=== PATIENT | female | born 1970 | race Caucasian/White ===

== ENCOUNTER → 2019-10-30 15:10 | Outpatient (CLI) | payer OTHER, SELFPAY ==
--- NOTE | ~2019-10-30 | US_ITS ---
EXAMINATION: US pelvic complete w TV EXAM DATE: 10/30/2019 15:48 INDICATION: Fibroids, menorrhagia. TECHNIQUE: Pelvic transabdominal and transvaginal sonogram was performed. There are multiple graysca le and Doppler images available for interpretation. Comparison is made to prior examination from 02/01. FINDINGS: Uterus measures 10.9 x 7.4 x 7.3 cm, and is morphologically normal. Endometrial stripe me asures 9 mm, within normal limits. There are several fibroids, largest measuring 3.7 cm, next largest 2.3 cm. There is no free pelvic fluid. Right adnexa: The ovary measures 3.8 x 3.2 x 3.7 cm and is morphologically normal. Ovarian vascular f low confirmed. Left adnexa: The ovary is not identified. There is no adnexal mass. No significant interval change compared to 2018 exam. IMPRESSION: 1. Fibroid uterus. Reviewed, dictated and finalized at location A. IMPRESSION: 1. Fibroid uterus.
== END ==
PROVIDERS: PCP Family Medicine; Visit Provider Obstetrics & Gynecology
DX: N92.0 Excessive and frequent menstruation with regular cycle (principal); Z11.51 Encounter for screening for human papillomavirus (HPV); Z12.4 Encounter for screening for malignant neoplasm of cervix; D25.9 Leiomyoma of uterus, unspecified
CPT/HCPCS: 76830; 76856

== ENCOUNTER 2021-08-13 12:58 | Outpatient (RCR) | payer OTHER, SELFPAY ==
[2021-08-13 14:08] VITALS: BP 136/80; PULSE 93; RESP 20; TEMP 36.7; O2SAT 98
[2021-08-13] MEDS: FAMOTIDINE 20 MG TABLET PO (14:10)
[2021-08-13] MEDS: ACETAMINOPHEN 325 MG TABLET 650 MG PO (14:10)
[2021-08-13] MEDS: diphenhydrAMINE HCl CAP 25 MG CAPSULE PO (14:12)
[2021-08-13] MEDS: diphenhydrAMINE HCl INJ 50 MG/ML VIAL IV PUSH (14:46)
[2021-08-13 14:48] VITALS: BP 135/97; PULSE 104; RESP 18; O2SAT 99
--- NOTE | 2021-08-13 14:49 | PC.NURSE ---
Infusion started, pt c/o feeling flushed. Pt neck and face appeared red. Infusion stopped after 10.6 ml infused at 1444. Benadryl 50 mg IV given per protocol. BP 135/97, HR 104.
[2021-08-13] MEDS: FAMOTIDINE 20 MG/2 ML VIAL IV PUSH (15:10)
--- NOTE | 2021-08-13 15:12 | PC.NURSE ---
Addendum entered by Roula Brito RN 08/13/21 15:37: A total of 17.3 ml of medication was infused. Original Note: Resumed infusion at 1503 at a rate of 150 ml/hr. At 1506 pt c/o abdominal cramping, infusion stopped. IV Pepcid administered per protocol. Pt. does not want to resume infusion.
[2021-08-13 15:30] VITALS: BP 117/69; PULSE 85; RESP 18; O2SAT 99
== END 2021-08-13 17:00 ==
LOC: AMCINF 12:58
PROVIDERS: PCP Nurse Practitioner Gerontology; Visit Provider Internal Medicine Hematology & Oncology
DX: U07.1 COVID-19 (principal); I10 Essential (primary) hypertension
CPT/HCPCS: A9270; J1200; M0245; Q0245

== ENCOUNTER → 2022-09-17 13:15 | Outpatient (CLI) | payer OTHER, SELFPAY ==
--- NOTE | ~2022-09-17 | US_ITS ---
EXAMINATION: US pelvic complete w TV DATE: 09/17/2022 14:01 INDICATION: Dysmenorrhea, unspecified TECHNIQUE: Multiple transabdominal and endovaginal sonographic images of the pelvis were obtained. COMPARISON: 10/30/2019 FINDINGS: The uterus measures 13.5 x 7.1 x 8.3 cm. The endometrial complex measures 16 mm. A 4.4 x 4. 3 cm mass of the anterior uterine body, a 2.4 x 1.9 cm mass of the lower uterine segment, and a 3.6 c m mass of the posterior uterine body have the appearance of intramural fibroids. The right ovary is n ot visualized however no right adnexal abnormality is seen. The left ovary measures 2.8 x 2.8 x 2.5 c m. There is normal vascular flow in the left ovary. There is no free fluid in the pelvis. IMPRESSION: 1. Uterine fibroids which appear stable to slightly increased in size. Reviewed, dictated and finalized at location F. 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
== END ==
PROVIDERS: PCP Family Medicine; Visit Provider Obstetrics & Gynecology
DX: N94.6 Dysmenorrhea, unspecified (principal); D25.9 Leiomyoma of uterus, unspecified
CPT/HCPCS: 76830; 76856

== ENCOUNTER 2023-08-23 17:34 | Emergency (ER) | payer OTHER, SELFPAY ==
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
[2023-08-23 17:58] VITALS: BP 147/95; PULSE 87; RESP 16; TEMP 36.1; O2SAT 99
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
== END 2023-08-23 21:25 | disposition home or self-care (01) ==
LOC: ANHED 20:53
PROVIDERS: Emergency Provider Physician Assistant; PCP Family Medicine
DX: R51.9 Headache, unspecified (principal); E78.2 Mixed hyperlipidemia; V89.2XXA Person injured in unspecified motor-vehicle accident, traffic, initial encounter
CPT/HCPCS: 70450; 72125; 99284

== ENCOUNTER 2024-06-06 09:16 | Outpatient (CLI) | payer OTHER, SELFPAY ==
--- NOTE | ~2024-06-06 | NM_ITS ---
EXAMINATION: NM arsen stress w perfusion DATE: 06/06/2024 11:41 INDICATION: Other forms of dyspnea TECHNIQUE: Rest images were obtained following intravenous administration of 9.35 mCi Tc99m tetrofosm in (Myoview). The patient was infused intravenously with Lexiscan (Regadenoson). Then, 28 mCi Tc99m t etrofosmin (Myoview) was administered intravenously, and stress images were obtained. Data was recons tructed into short axis and horizontal and vertical long axis SPECT images. Gated SPECT images were a lso obtained. COMPARISON: None. FINDINGS: There is no definite reversible or fixed perfusion abnormality to suggest ischemia or infar ction. There is normal left ventricular chamber size, wall motion and ejection fraction. Left ventr icular ejection fraction measures >70%. IMPRESSION: 1. Normal myocardial perfusion at rest and during stress. 2. Left ventricular ejection fraction measuring >70%. Reviewed, dictated and finalized at location A.
--- NOTE | 2024-06-06 09:59 | EST_ITS ---
Patient Info Name: Vidya Mary Age: 53 years : 1970 Gender: Female Ht: 65 in Wt: 190 lbs BSA: 2.02 m2 HR: 65 bpm BP: 151 / 91 mmHg Heart Rhythm: Sinus Rhythm Exam Date: 06/06/2024 10:22 AM Exam Location: [facility] Patient Status: Outpatient Admit Date: 06/06/2024 Staff Ordering Physician: Jorge Paul DO Attending Provider: Jorge Paul DO Exercise Technologist: Altagracia Bone CT Exercise Physician: Jorge Paul DO Exam Type: CA stress arsen w NM Study Info Indications R06.09 - Other forms of dyspnea A regadenoson stress test was performed. Summary 1. 1. Abnormal lexiscan stress test for ischemic ST changes by ECG criteria. 2. 2. Baseline hypertension. 3. 3. Nuclear scan to follow and will be reported separately. Please correlate with it. 4. 4. Patient informed of the above results. Protocol: Lexiscan Stress ECG Details Stage: REST Duration (min): 1 min : 28 sec HR (bpm): 76 SBP (mmHg): 151 DBP (mmHg): 91 Stage: REST Duration (min): 9 min : 7 sec HR (bpm): 79 SBP (mmHg): 151 DBP (mmHg): 91 Stage: STAGE 1 Duration (min): 1 min : 0 sec HR (bpm): 112 SBP (mmHg): 148 DBP (mmHg): 81 Stage: RECOVERY Duration (min): 1 min : 0 sec HR (bpm): 115 SBP (mmHg): 148 DBP (mmHg): 81 Stage: RECOVERY Duration (min): 2 min : 0 sec HR (bpm): 108 SBP (mmHg): 148 DBP (mmHg): 81 Stage: RECOVERY Duration (min): 3 min : 0 sec HR (bpm): 101 SBP (mmHg): 133 DBP (mmHg): 78 Stage: RECOVERY Duration (min): 4 min : 0 sec HR (bpm): 101 SBP (mmHg): 133 DBP (mmHg): 78 Stage: RECOVERY Duration (min): 4 min : 10 sec HR (bpm): 97 SBP (mmHg): 133 DBP (mmHg): 78 Rest HR: 79 bpm Peak HR: 117 bpm Rest Sys BP: 151 mmHg Peak Sys BP: 148 mmHg Max Pred HR: 169 bpm % Max Pred HR: 69 % Target HR: 144 bpm Max RPP: 17,316 bpm*mmHg Termination Reason: Completed protocol Cardiac Symptoms: Shortness of breath Total Time: 1 min : 0 sec Rest Carcamo BP: 91 mmHg Peak Carcamo BP: 81 mmHg Total Dose: 0.4 mg Resting ECG Sinus rhythm. Stress ECG 1-[address] depression in leads II, III, avF. Arrhythmias None. Report Signatures
== END 2024-06-06 09:17 | disposition home or self-care (01) ==
PROVIDERS: PCP Family Medicine; Visit Provider Internal Medicine Cardiovascular Disease
DX: R06.09 Other forms of dyspnea (principal)
CPT/HCPCS: 78452; 93017; A9502; J2785

== ENCOUNTER 2024-07-20 11:33 | Emergency (ER) | payer OTHER, SELFPAY ==
[2024-07-20 12:11] VITALS: BP 123/83; PULSE 82; RESP 16; TEMP 36.4; O2SAT 98
--- NOTE | 2024-07-20 12:44 | ED.GENADULT ---
HPI - General Adult General Chief complaint: Skin/Abscess/Foreign Body Stated complaint: Breast Pain Time Seen by Provider: 07/20/24 12:44 Source: patient Mode of arrival: ambulatory Limitations: no limitations History of Present Illness HPI narrative: 53 yo F presents with c/o redness, drainage from incision. had bilateral breast reduction jun 22. has been checking pt's wounds. Noticed that water was sitting under surgical tape. removed it and noticed incision open with some redness and yellow drainage. Concerned for infection. has appt with surgeon in 4 days. All systems reviewed and negative except as noted above. Related Data Home Medications Medication Instructions Recorded Confirmed cholecalciferol (vitamin D3) 25 1,000 unit PO DAILY 08/13/19 05/31/24 mcg (1,000 unit) capsule hydrochlorothiazide 25 mg tablet 25 mg PO DAILY 08/13/19 05/31/24 montelukast 10 mg tablet 10 mg PO DAILY 08/13/19 05/31/24 (Singulair) spironolactone 100 mg tablet 100 mg PO DAILY 03/12/21 05/31/24 ascorbate calcium (vitamin C) 500 500 mg PO DAILY 05/11/24 05/31/24 mg tablet magnesium 250 mg tablet 250 mg PO DAILY 05/11/24 05/31/24 mecobalamin (vitamin B12) 500 mcg mcg PO DAILY 05/11/24 05/31/24 chewable tablet metronidazole 0.75 % topical gel 1 applic topical DAILY 05/11/24 05/31/24 Allergies Allergy/AdvReac Type Severity Reaction Status Date / Time ciprofloxacin Allergy Mild indigestion Verified 07/20/24 12:40 Review of Systems Review of Systems: CONSTITUTIONAL: Denies fever, chills, or sweats. EYES: Denies visual changes, redness, or discharge. ENT: Denies rhinorrhea, congestion, sore throat, or otalgia. CARDIOVASCULAR: Denies chest pain, palpitations, or edema. RESPIRATORY: Denies cough or dyspnea. GASTROINTESTINAL: Denies abdominal pain, nausea, vomiting, or diarrhea. GENITOURINARY: Denies dysuria or hematuria. SKIN: Denies rash or itching. Reports redness, drainage to incision site breast. MUSCULOSKELETAL: Denies back pain, joint pain, or myalgia. NEUROLOGIC: Denies headache, numbness, or weakness. PSYCHIATRIC: Denies anxiety or depression. All other systems reviewed are negative, except as documented in HPI. PENDING SALE TO [facility] Past Medical History Medical History (Updated 07/20/24 @ 12:58 by Yolanda Palomino NP) Appendicitis with peritonitis COVID-19 Generalized anxiety disorder Meniere's disease of right ear Mixed hyperlipidemia Personal history of COVID-19 Prediabetes Right SNHL Surgical History Surgical History Hx of myomectomy S/P appendectomy Family History Family History Sibling Family history of malignant neoplasm of breast in first degree relative, Onset Age: 31 Patient's sister is Mother Family history of type 2 diabetes mellitus Other Acute myocardial infarction Cerebrovascular accident Family history of cardiovascular disease Hypertension Social History Social History Social History: Smoking status: Never smoker Second hand tobacco smoke exposure: No Alcohol intake: never Substance use: never Substance use type: does not use Do You Feel Safe in your Home?: Yes Lack of Transportation: No Lack of Food: Never True Current Housing: I Have Housing Concerned About Future Housing: No Difficulty Paying Gas/Electric Bills: No Difficulty Paying for Meds: No Currently Unemployed: No Education: High School Diploma/GED Difficulty w/ Childcare or Family Care: No Living arrangements: with family Occupation/Education: occupation Gender identity (if verbalized by the patient): Female Sexual Orientation (if Verbalized by the Patient): Straight or Heterosexual Spiritual care concerns: No Exam Narrative: GENERAL: This is a well-nourished, well-developed patient, in no apparent distress. HEAD: normocephalic, atraumatic. EYES: PERRL. Sclera clear/white. Vision is grossly intact. EARS: External ears normal NOSE: External nose normal NECK: Neck supple, non-tender without lymphadenopathy, masses or thyromegaly. CARDIOVASCULAR: Regular rate and rhythm without murmurs, gallops, or rubs. RESPIRATORY: Clear to auscultation. Breath sounds equal bilaterally. No wheezes, rales, or rhonchi. SKIN: warm, Dry, with no suspicious lesions or rash, good texture and turgor. small area of dehiscence to surgical incision of L breast with mild erythema, scant yellow drainage. no fluctuance. no significant swelling. NEURO: awake, alert, and oriented to person, place and time. There were no obvious focal neurologic abnormalities. EXTREMITIES: No joint tenderness, effusion, or edema noted. Chest: Chest/axillae images: 1. incision dehiscence less than 1 cm diameter Course Course Level of Care: Express Care Visit Vital Signs Vital signs: Vital Signs Temperature 36.4 C L 07/20/24 12:11 Pulse Rate 82 07/20/24 12:11 Respiratory Rate 16 07/20/24 12:11 Blood Pressure 123/83 07/20/24 12:11 Pulse Oximetry 98 07/20/24 12:11 Temperature 36.4 C L 07/20/24 12:11 Pulse Rate 82 07/20/24 12:11 Respiratory Rate 16 07/20/24 12:11 Blood Pressure 123/83 07/20/24 12:11 Pulse Oximetry 98 07/20/24 12:11 Medical Decision Making MDM Narrative Medical decision making narrative: Small area of wound dehiscence to incision under left breast with scant yellow drainage, mild erythema. Could be normal wound healing. Will treat with mupirocin ointment. Appointment with surgeon in 4 days. Patient is aware of diagnosis, understands and agrees to treatment plan. Anticipatory guidance given. Patient agrees to follow-up as directed and is aware of reasons to seek care at the emergency department. Portions of this record may have been created with voice recognition software Vital Signs Vital Signs: Vital Signs Temperature 36.4 C L 07/20/24 12:11 Pulse Rate 82 07/20/24 12:11 Respiratory Rate 16 07/20/24 12:11 Blood Pressure 123/83 07/20/24 12:11 Pulse Oximetry 98 07/20/24 12:11 Temperature 36.4 C L 07/20/24 12:11 Pulse Rate 82 07/20/24 12:11 Respiratory Rate 16 07/20/24 12:11 Blood Pressure 123/83 07/20/24 12:11 Pulse Oximetry 98 07/20/24 12:11 Reviewed Discharge Plan Discharge Clinical Impression: External incisional dehiscence Qualifiers: Encounter type: initial encounter Qualified Code(s): T81.31XA - Disruption of external operation (surgical) wound, not elsewhere classified, initial encounter Patient Disposition: Home, Self-Care Condition: Stable Instructions: Antibiotic Form Additional Instructions: Apply antibiotic ointment as prescribed. Keep area clean and dry. Wash with mild soap and water. Follow up with your surgeon at scheduled appointment. Prescriptions: New mupirocin 2 % ointment 1 applic topical TID 7 Days Qty: 22 0RF No Action montelukast [Singulair] 10 mg tablet 10 mg PO DAILY hydrochlorothiazide 25 mg tablet 25 mg PO DAILY cholecalciferol (vitamin D3) 25 mcg (1,000 unit) capsule 1,000 unit PO DAILY esomeprazole magnesium 40 mg capsule,delayed release(DR/EC) 40 mg PO DAILY 90 Days Qty: 90 2RF spironolactone 100 mg tablet 100 mg PO DAILY Rx Instructions: by derm from [facility] magnesium 250 mg tablet 250 mg PO DAILY mecobalamin (vitamin B12) 500 mcg tablet,chewable PO DAILY ascorbate calcium (vitamin C) 500 mg tablet 500 mg PO DAILY metronidazole 0.75 % gel 1 applic topical DAILY atorvastatin 10 mg tablet See Rx Instructions .ROUTE .COMPLEX Qty: 90 1RF Dose Instruction: TAKE 1 TABLET BY MOUTH EVERY DAY AT BEDTIME Rx Instructions: TAKE 1 TABLET BY MOUTH EVERY DAY AT BEDTIME Follow-up/Referrals: Ainsley Quezada MD [Primary Care Provider] - Time of Disposition: 12:56
== END 2024-07-20 13:02 | disposition home or self-care (01) ==
PROVIDERS: Emergency Provider Nurse Practitioner Family; PCP Family Medicine
DX: T81.31XA Disruption of external operation (surgical) wound, not elsewhere classified, initial encounter (principal); E78.2 Mixed hyperlipidemia; R73.03 Prediabetes; Z86.16 Personal history of COVID-19; H81.01 Meniere's disease, right ear
CPT/HCPCS: 99213; G0463

== ENCOUNTER 2024-08-02 08:16 | Outpatient (CLI) | payer OTHER, SELFPAY ==
[2024-08-13 15:47] VITALS: BMI 30.7
--- NOTE | 2024-08-13 15:47 | P.SLEEP_ITS ---
Sleep Study - Home Unattended Date of Study: 08/02/24 Ordering Provider: Jorge Paul DO Interpreting Provider: Roula Renteria DO [facility] Type: Watch PAT Height: 1.65 m Weight: 83.915 kg Body Mass Index: 30.7 Neck Circumference (inches): 14.5 [place]: 5 Reason for Sleep Study Difficulty falling and staying asleep Sleep History The patient is a 53-year-old female that had a sleep study ordered by her post adoption coordinator for evaluation of sleep apnea. The patient denies snoring loudly. She denies stopping breathing while asleep. She denies choking or gasping. She denies having trouble breathing on her back. She denies morning headaches. She denies having a dry or sore mouth/ throat in the morning. She denies nocturnal heartburn. She denies nocturia. She does have difficulty falling and staying asleep. If she wakes up throughout the night, she does have difficulty returning back to sleep. She denies any hypnotic or sedative use. She denies feeling anxious about sleep. She does feel tired or sleepy during the day. She does feel on refreshed in the morning. She denies having the urge to fall asleep during the day. She denies feeling drowsy while driving. She denies sleep paralysis, cataplexy and hypnagogic / hypnopompic hallucinations. She denies consuming or grinding her teeth. She denies kicking or jerking her legs excessively. She denies having a restless feeling in her legs. She goes to bed at 9:00 p.m. on work days and at 10:00 p.m. on her days off. It takes her 1 hour to fall asleep on workdays and 30 minutes to fall asleep on her days off. She typically gets 7 hours of sleep daily. Her sleep is somewhat restorative on her days off. She denies taking any planned naps. She denies dream enactment behavior. She denies sleep walking. She consumes 1-2 cups of caffeinated beverage per day. She denies alcohol and tobacco use. She denies exercising on a regular basis. [facility] Past Medical History Medical History Personal history of COVID-19 COVID-19 Prediabetes Mixed hyperlipidemia Generalized anxiety disorder Appendicitis with peritonitis Right SNHL Meniere's disease of right ear Surgical History Surgical History Hx of myomectomy S/P appendectomy Family History Family History Sibling Family history of malignant neoplasm of breast in first degree relative, Onset Age: 31 Patient's sister is Mother Family history of type 2 diabetes mellitus Other Acute myocardial infarction Cerebrovascular accident Family history of cardiovascular disease Hypertension Social History Social History Social History: Smoking status: Never smoker Second hand tobacco smoke exposure: No Alcohol intake: never Substance use: never Substance use type: does not use Do You Feel Safe in your Home?: Yes Lack of Transportation: No Lack of Food: Never True Current Housing: I Have Housing Concerned About Future Housing: No Difficulty Paying Gas/Electric Bills: No Difficulty Paying for Meds: No Currently Unemployed: No Education: High School Diploma/GED Difficulty w/ Childcare or Family Care: No Living arrangements: with family Occupation/Education: occupation Gender identity (if verbalized by the patient): Female Sexual Orientation (if Verbalized by the Patient): Straight or Heterosexual Spiritual care concerns: No Medications Home Medications ?Medication ?Instructions ?Recorded ?Confirmed ?Type cholecalciferol (vitamin D3) 25 1,000 unit PO DAILY 08/13/19 05/31/24 History mcg (1,000 unit) capsule hydrochlorothiazide 25 mg tablet 25 mg PO DAILY 08/13/19 05/31/24 History montelukast 10 mg tablet 10 mg PO DAILY 08/13/19 05/31/24 History (Singulair) spironolactone 100 mg tablet 100 mg PO DAILY 03/12/21 05/31/24 History ascorbate calcium (vitamin C) 500 500 mg PO DAILY 05/11/24 05/31/24 History mg tablet magnesium 250 mg tablet 250 mg PO DAILY 05/11/24 05/31/24 History mecobalamin (vitamin B12) 500 mcg mcg PO DAILY 05/11/24 05/31/24 History chewable tablet metronidazole 0.75 % topical gel 1 applic topical DAILY 05/11/24 05/31/24 History esomeprazole magnesium 40 mg 40 mg PO DAILY 90 days #90 caps 05/31/24 05/31/24 Rx capsule,delayed release atorvastatin 10 mg tablet See Rx Instructions .Route 06/11/24 Rx .COMPLEX #90 tabs mupirocin 2 % topical ointment 1 applic topical TID 7 days #22 07/20/24 Rx grams Sleep Procedure The sleep study was completed using PixelatedT a technically adequate device with seven channels: peripheral arterial tone, actigraphy, body position, snore, respiratory movement, pulse oximetry, sleep staging, and heart rate. Prior to using the device, the patient received verbal and written instructions for its application and was provided with the help desk phone number for additional telephonic instruction with 24-hour availability of qualified personnel to answer questions. The study was scored using CMS guidelines. Sleep Architecture The total recording time is 8 hrs, 29 min. The total sleep time is 7 hrs, 23 min. Sleep latency is 5 minutes. REM latency is 89 minutes. The patient had 9 episodes of waking. Sleep architecture shows 16.7% deep sleep, 68.1% light sleep, and (as % Total Sleep Time) showed NREM (Light 68.1%; Deep 16.7%), and a 15.2% stage REM. The patient spent 69.0% of total sleep time in the supine position. Sleep efficiency was 87.03. Respiratory Analysis The overall AHI (pAHI 3%:) is 4.8. The central AHI is 0.6. The AHI was 4.2 in NREM and 8.0 in REM sleep. The AHI was 6.5 in Supine and 1.0 in Non-supine sleep. Percent of [place] respirations is 0.0. Oximetry Data The oxygen desaturation index (JANICE 4%:) is 0.4. The mean saturation is 95%, and the lowest saturation is 90%. Time spent with saturation < 88% is 0.0 minutes. Snoring Profile Snoring average intensity is 40 dB. The patient snored above 45 decibels for 5.9 minutes, 1.3% of sleep time. Cardiac Profile The average pulse rate is 70 beats per minutes. The lowest pulse rate is 58 bpm. The highest pulse rate reported is 110 bpm. Atrial fibrillation was not detected. Premature beats occur <0.1 per minute. Assessment and Plan Assessment and Plan (1) Sleep disturbances: Code(s): G47.9 - Sleep disorder, unspecified Status: Acute Assessment and Plan: The patient had an overall AHI of 4.8 with desaturation down to 90%. This is not consistent with sleep-disordered breathing. The patient just barely missed the AHI cutoff for sleep apnea (AHI of 5 or greater). Not all nights of sleep are equal and it is likely that she would meet criteria for sleep apnea on a different night. Due to the patient's difficulty falling and staying asleep, further evaluation is warranted. I recommend that the patient have a split study with the use of a hypnotic (Lunesta 2-3 mg or Ambien 5-10 mg) to ensure we obtain enough sleep data. Data The data obtained during this sleep study is adequate for interpretation. Certification This sleep study has been reviewed by a board certified sleep medicine physician.
== END 2024-08-03 15:14 | disposition home or self-care (01) ==
LOC: ANHCSM 08:17
PROVIDERS: PCP Family Medicine; Visit Provider Internal Medicine Cardiovascular Disease
DX: G47.10 Hypersomnia, unspecified (principal); G47.9 Sleep disorder, unspecified; I10 Essential (primary) hypertension
CPT/HCPCS: 95800

== ENCOUNTER 2025-02-27 15:18 | Outpatient (CLI) | payer OTHER, SELFPAY ==
--- NOTE | ~2025-02-27 | US_ITS ---
Pelvic ultrasound. Clinical History: Abnormal uterine bleeding Technique: Realtime transabdominal and transvaginal scanning of the pelvis was performed. Color flow Doppler and Doppler spectral analysis were performed. Findings: The uterus is anteverted. The endometrial stripe has a thickness of 6 mm. Heterogeneous fi broid towards the fundus measures 6.3 x 4.5 x 5.9 cm. Additional smaller fibroid measures 3.2 cm in d iameter.. The right ovary is not visualized. No significant right ovarian or adnexal mass is seen. The left ovary measures 3.0 x 2.4 x 1.8 cm. No significant left ovarian or adnexal mass is seen. There is no evidence of free fluid in the cul de sac. Impression: Uterine fibroids, as detailed above. Reviewed, dictated and finalized at location M. Impression: Uterine fibroids, as detailed above.
== END 2025-02-27 15:19 | disposition home or self-care (01) ==
LOC: MICIMG 15:19
DX: D25.9 Leiomyoma of uterus, unspecified (principal)
CPT/HCPCS: 76830; 76856